=== PATIENT | female | born 1985 | race Two or more races ===

== ENCOUNTER 2024-04-19 16:00 | Emergency (ER) | payer MEDICAID, OTHER ==
[~2024-04-19] VITALS: Ht 152.4 cm; Wt 69.4 kg
[2024-04-19 18:22] LABS: Urine Bacteria FEW /hpf (None Seen); Urine Blood 1+ /uL (Negative); Urine Clarity Clear (Clear); Urine Color Colorless (Yellow); Urine Protein, UAD Negative (Negative); Urine Specific Gravity 1.003 (1.001-1.035); Urine Urobilinogen Normal (Negative); Urine WBC 2 /hpf (0 - 5); Urine pH 5.5 (5.0-9.0)
[2024-04-19 21:24] VITALS: BP 134/86; PULSE 98; RESP 16; TEMP 98.3; O2SAT 97
[2024-04-19] MEDS ORDERED: CYCL-837 PO (21:25)
[2024-04-19] MEDS ORDERED: BACDST PO (21:25)
[2024-04-19] MEDS ORDERED: ACET500T58 PO (21:25)
== END 2024-04-19 21:31 | disposition home or self-care (01) ==
LOC: ER 16:00
DX: S16.1XXA Strain of muscle, fascia and tendon at neck level, initial encounter (principal); S50.812A Abrasion of left forearm, initial encounter; N39.0 Urinary tract infection, site not specified; Z32.02 Encounter for pregnancy test, result negative; V43.52XA Car driver injured in collision with other type car in traffic accident, initial encounter; Y93.89 Activity, other specified; Y92.488 Other paved roadways as the place of occurrence of the external cause; Y99.8 Other external cause status
CPT/HCPCS: 81001; 81025